=== PATIENT | male | born 1980 | race Caucasian/White ===

== ENCOUNTER 2024-06-26 06:14 | Day surgery (SDC) | payer OTHER, SELFPAY ==
[2024-06-26] VITALS (9 sets, daily range): BP systolic 116–131; BP diastolic 60–81; BMI 30.5
[2024-06-26] MEDS: NORMOSOL-R/PLASMALYTE-A 1000 IV (12:27)
== END 2024-06-26 15:24 | disposition home or self-care (01) ==
LOC: SDS 06:14
PROVIDERS: ATTENDING PHYSICIAN Surgery
DX: Z30.2 Encounter for sterilization (principal); N31.9 Neuromuscular dysfunction of bladder, unspecified
CPT/HCPCS: 55250; 88302